=== PATIENT | male | born 1970 | race Native Hawaiian/Other Pacific Islander ===

== ENCOUNTER 2023-11-28 15:01 | Outpatient (RCR) | payer MEDICARE, MEDICAID, SELFPAY ==
--- NOTE | 2023-11-28 16:00 | PT.OIE ---
Current Diagnoses Irritable bowel syndrome without diarrhea (11/28/23) Segmental and somatic dysfunction of pelvic region (11/28/23) Urgency of urination (11/28/23) Visit Care Team Role Provider Type Jeffrey Fiore PA-C Attending Provider Non-Staff Family Provider Primary Care Provider Referring Provider Specialty: Medical Address: [address] [place] [address], [id number] Email: Physical Therapy Initial Evaluation PT-OP-A Visit Information Start: 11/28/23 10:15 Freq: Status: Active Protocol: Document 11/28/23 15:20 [facility] (Rec: 11/28/23 16:17 [facility] [id number]) Out-Patient Physical Therapy Visit Information Visit Information Visit Type Initial Evaluation Visit Start Time 15:20 Visit Stop Time 16:00 Visit Number 1 Evaluation Information Evaluation Date 11/28/23 PT-OP-B Current Condition Start: 11/28/23 10:15 Freq: Status: Active Protocol: Document 11/28/23 15:20 [facility] (Rec: 11/28/23 16:17 [facility] [id number]) Current Condition History of Current Condition Onset Date worse in the past couple of years Current Complaints pain and inability to empty the bowels History of Current Condition pt notes his gastro who did his last colonoscopy as they feel his pelvic floor is working opposite of what they should be He sigmoid has been swollen with thickened damon of the colon. He reports times where he feels he needs to have a bowel movement but nothing comes out but mucus and at times he will have bleeding. Average bowel movement is 10 times per day and alot of those times it isn't a productive bowel movement. He notes his bowel movements usually are soft but very long. He doesn't strain to have a bowel movement but he does not her gets 'Dry heaves in his rectum. 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 Prior Treatments and Tests hx of diverticulitic and hemhroids for quite a long time, history of turrets for a lot of his life he had a bladder and prostate surgery last week due to a enlarged prostate 2 weeks ago and after wards he experienced blood with urinating, he needed to be hospitalized x 5 days. Treatment Goals Patient/Caregiver Goals goals include improving ability to have a bowel movement and decrease pelvic pain symptoms PT-OP-C Subjective Start: 11/28/23 10:15 Freq: Status: Active Protocol: Document 11/28/23 15:20 [facility] (Rec: 11/29/23 13:01 [facility] [id number]) Patient Questionnaires Pelvic Pain and Urgency/Frequency Patient Symptom Scale Pelvic Pain Score 15 OP-PT Pain Assessment Pain Assessment Grid Paper Pain Assessment Grid Completed Yes Location anterior pelvis Pain Location Details anterior pelvis and subrapubic fascia Intensity 5 Scale Used Numeric (0 - 10) Description Aching,Spasm,Tightness Frequency Frequent PT-OP-F Manual Assessment Start: 11/28/23 10:15 Freq: Status: Active Protocol: Document 11/28/23 15:20 [facility] (Rec: 11/29/23 13:18 [facility] [id number]) Manual Assessments Soft Tissue Assessment Soft Tissue Mobility Assessment tightness throught the fasica surrounding the large intestine with most notible tightness in the transverse colon tightness in the suprapubic fascia PT-OP-I Pelvic Floor Start: 11/28/23 10:15 Freq: Status: Active Protocol: Document 11/28/23 15:20 [facility] (Rec: 11/29/23 13:01 [facility] [id number]) Pelvic Floor Assessment Urine Pelvic Floor Surgery Yes: prostate surgery Urinary Symptoms Urge Sensation Other Urinary Symptoms pt was having difficulty with voiding but now is doing better after prostate surgery Voiding Frequency 15+ times per day Bowel Bowel Symptoms Constipation,Pain Other Bowel Symptoms pt reports he has difficulty emptying the bowels, he will experience what he calls anal dry heaves where he is trying to empty but only mucus is emptying. He reports trying to empty his bowels over 10 times per day. PT-OP-K Range of Motion Start: 11/29/23 13:18 Freq: Status: Active Protocol: Document 11/28/23 15:20 [facility] (Rec: 11/29/23 13:19 [facility] [id number]) Hip Goniometric Range of Motion Hip ROM Limitations Hip ROM Limitations Soft Tissue Tightness Comments tightness with hip ER B at 10 degrees each side, + dawit test B for iliopsoas tightness , SKTC B is 95 degrees, SLR is 50 B PT-OP-Q Treatments Start: 11/28/23 10:15 Freq: Status: Active Protocol: Document 11/28/23 15:20 [facility] (Rec: 11/28/23 16:24 [facility] [id number]) Therapeutic Exercises Supine Exercises pelvic floor modified squat stretch Reps/Minutes hold 1-2 minutes lower trunk rotation Reps/Minutes x 20 reps Other Exercises cat cow Reps/Minutes x 10 reps Comments poor pelvic mobility noted Manual Therapy Treatment Consent Patient gave verbal consent for manual Yes treatment Soft Tissue Mobilization ILU massage over the colon Mobilization Type Myofascial Release Intensity/Depth Moderate Body Position Hooklying Comments tightness noted across the transverse colon, pt holds his abdominal wall tight and guarded Self-Care/Home Management Treatment Education Patient Education Home Exercise Program Other Education pt was educated in ILU self massage over the colon PT-OP-T Assessment and Plan Start: 11/28/23 10:15 Freq: Status: Active Protocol: Document 11/28/23 15:20 [facility] (Rec: 11/29/23 13:01 [facility] [id number]) Physical Therapy Assessment Rehab Potential Rehabilitation Potential Good Evaluation Complexity Number of Personal Factors/Comorbidities 1-2 Number of Body Systems Impaired 1-2 Clinical Presentation at Evaluation Stable Impairments Impairments Activity Tolerance,Functional Activities,Functional Mobility ,Pain,Soft Tissue Mobility, Strength,Tone Other Impairments urinary urgency Goals 3 Impairment pelvic pain rated 4-5/10 [employer] Staff Nurse Goal (LTG) Joey reports a overall reduction in pelvic pain reduced to 1-2/10 2 Impairment pelvic floor and abdominal wall guarding and tension [facility] Staff Nurse Goal (LTG) Joey is ind with a home exercise program to reduce tension in the pelvic floor and abdominal wall LTG Duration 8 weeks 1 Impairment Decreased ability to fully empty the bowels Short Term Goal (STG) Joey is educated on use of a squatty potty and given hip stretches as well as abdominal massage techniques to start working towards improved bowel function STG Duration 4 weeks Detention Goal (LTG) Joey reports improved ability to fully empty the bowels and he has decreased toileting attempts throughout the day LTG Duration 8 weeks Assessment Summary Assessment Joey is a 52 year old male referred to PT with primary complaints of irritable bowel syndrome. Joey has a long history of colon irritation and he notes that the damon of his colon are thickened. He has diverticulits and has had polyps removed with colonoscopy. He notes that the benefits clerk who did his last colonoscopy felt that his pelvic floor may be guarded restricting his ability to have a bowel movement. He reports his average from trying to have a bowel movement is 10 times per day and a lot of those times it is not a productive bowel movement. He reports there are times when he is only eliminating mucus and he describes the feeling of dry heaving from his rectum without anything productive. When he is able to have a bowel movement he is having soft but very long stool. With examination today there is a great deal of tension and guarding in the abdominal wall. Joey does have a history of back pain and does guard throuought his abdominal wall. He is tight in his hips and has decreased hip ROM into hip flexion and ER. He is able to contract his pelvic floor but does have difficulty with both abdominal wall relaxation as well as pelvic floor relaxation. He was shown a self massage over his colon today and well as exercises to begin moving through his hips and his trunk to help mobilize at the colon . I gave him a pelvic floor stretch as well as discussed the option of using a squatty potty. Treatment will focus on both abdominal wall and pelvic floor relaxation as well as trunk and hip mobility exercises to help with improved stimulation to the colon for bowel movements. Physical Therapy Plan Frequency and Duration Frequency of Treatment 1x/Week Duration of treatment (weeks) 8 Plan of Care Start Date 11/29/23 Plan of Care End Date 01/24/24 Therapeutic Interventions Therapeutic Interventions Home Exercise Program,Manual Therapy,Neuromuscular Re- education,Patient/Caregiver Education,Self-Care/Home Management,Soft Tissue Mobilization,Therapeutic Exercises Modalities Biofeedback Next Visit Focus/Plan Next Note Type Treatment Note Next Visit Plan review ILU massage over the colon, review stretches given to Joey this last visit, consider EMG biofeedback to help with relaxed awareness of the pelvic floor
--- NOTE | 2023-12-12 15:36 | PT.OPDS ---
Current Diagnoses Irritable bowel syndrome, unspecified (11/28/23) Segmental and somatic dysfunction of pelvic region (11/28/23) Urgency of urination (11/28/23) Visit Care Team Role Provider Type Jeffrey Fiore PA-C Attending Provider Non-Staff Family Provider Primary Care Provider Referring Provider Specialty: Medical Address: [address] [place] [address], [id number] Email: Visit Number Visit Number 1 Discharge Summary PT-OP-B Current Condition Start: 11/28/23 10:15 Freq: Status: Active Protocol: Document 11/28/23 15:20 [facility] (Rec: 11/28/23 16:17 [facility] [id number]) Current Condition History of Current Condition Onset Date worse in the past couple of years Current Complaints pain and inability to empty the bowels History of Current Condition pt notes his gastro who did his last colonoscopy as they feel his pelvic floor is working opposite of what they should be He sigmoid has been swollen with thickened damon of the colon. He reports times where he feels he needs to have a bowel movement but nothing comes out but mucus and at times he will have bleeding. Average bowel movement is 10 times per day and alot of those times it isn't a productive bowel movement. He notes his bowel movements usually are soft but very long. He doesn't strain to have a bowel movement but he does not her gets 'Dry heaves in his rectum. 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 Prior Treatments and Tests hx of diverticulitic and hemhroids for quite a long time, history of turrets for a lot of his life he had a bladder and prostate surgery last week due to a enlarged prostate 2 weeks ago and after wards he experienced blood with urinating, he needed to be hospitalized x 5 days. Treatment Goals Patient/Caregiver Goals goals include improving ability to have a bowel movement and decrease pelvic pain symptoms PT-OP-C Subjective Start: 11/28/23 10:15 Freq: Status: Active Protocol: Document 11/28/23 15:20 [facility] (Rec: 11/29/23 13:01 [facility] [id number]) Patient Questionnaires Pelvic Pain and Urgency/Frequency Patient Symptom Scale Pelvic Pain Score 15 OP-PT Pain Assessment Pain Assessment Grid Paper Pain Assessment Grid Completed Yes Location anterior pelvis Pain Location Details anterior pelvis and subrapubic fascia Intensity 5 Scale Used Numeric (0 - 10) Description Aching,Spasm,Tightness Frequency Frequent PT-OP-F Manual Assessment Start: 11/28/23 10:15 Freq: Status: Active Protocol: Document 11/28/23 15:20 [facility] (Rec: 11/29/23 13:18 [facility] [id number]) Manual Assessments Soft Tissue Assessment Soft Tissue Mobility Assessment tightness throught the fasica surrounding the large intestine with most notible tightness in the transverse colon tightness in the suprapubic fascia PT-OP-I Pelvic Floor Start: 11/28/23 10:15 Freq: Status: Active Protocol: Document 11/28/23 15:20 [facility] (Rec: 11/29/23 13:01 [facility] [id number]) Pelvic Floor Assessment Urine Pelvic Floor Surgery Yes: prostate surgery Urinary Symptoms Urge Sensation Other Urinary Symptoms pt was having difficulty with voiding but now is doing better after prostate surgery Voiding Frequency 15+ times per day Bowel Bowel Symptoms Constipation,Pain Other Bowel Symptoms pt reports he has difficulty emptying the bowels, he will experience what he calls anal dry heaves where he is trying to empty but only mucus is emptying. He reports trying to empty his bowels over 10 times per day. PT-OP-K Range of Motion Start: 11/29/23 13:18 Freq: Status: Active Protocol: Document 11/28/23 15:20 [facility] (Rec: 11/29/23 13:19 [facility] [id number]) Hip Goniometric Range of Motion Hip ROM Limitations Hip ROM Limitations Soft Tissue Tightness Comments tightness with hip ER B at 10 degrees each side, + dawit test B for iliopsoas tightness , SKTC B is 95 degrees, SLR is 50 B PT-OP-T Assessment and Plan Start: 11/28/23 10:15 Freq: Status: Active Protocol: Document 12/12/23 15:35 [facility] (Rec: 12/12/23 15:36 [facility] [id number]) Physical Therapy Assessment Assessment Summary Assessment Joey has failed to show up for his last 2 PT visits. Per hospital protocol his remaining visits will be canceled and he will be DC from PT Physical Therapy Plan Discharge Physical Therapy Discharge Comments noncomplaince and failure to show up for appointments
== END 2023-12-19 08:44 | disposition home or self-care (01) ==
LOC: PHYS 15:01
PROVIDERS: Family Provider Physician Assistant Medical; PCP Physician Assistant Medical; Referring Provider Physician Assistant Medical; Visit Provider Physician Assistant Medical
DX: M99.05 Segmental and somatic dysfunction of pelvic region (principal); R39.15 Urgency of urination; K58.9 Irritable bowel syndrome, unspecified
CPT/HCPCS: 97110; 97161